=== PATIENT | male | born 1985 | race African-American/Black ===

== ENCOUNTER 2019-10-07 23:37 | Emergency (ER) | payer SELFPAY ==
[~2019-10-07] VITALS: Ht 170.2 cm; Wt 71.0 kg
[2019-10-08] MEDS ORDERED: TETANUS, DIPHTHERIA, PERTUSSIS VAC/PF 0.5ML (>7YR OLD) IM ONE (00:15)
[2019-10-08 01:35] VITALS: BP 126/87
== END 2019-10-08 02:40 | disposition left against medical advice (07) ==
LOC: ER 23:37
DX: S01.01XA Laceration without foreign body of scalp, initial encounter (principal); W01.198A Fall on same level from slipping, tripping and stumbling with subsequent striking against other object, initial encounter; Y93.89 Activity, other specified; Y92.89 Other specified places as the place of occurrence of the external cause; F10.10 Alcohol abuse, uncomplicated; Y90.9 Presence of alcohol in blood, level not specified; J45.909 Unspecified asthma, uncomplicated; Z23 Encounter for immunization
CPT/HCPCS: 90471; 90715; 99284